=== PATIENT | male | born 1940 | race Hispanic/Latino ===

== ENCOUNTER 2017-02-01 00:02 | Inpatient (IN) | payer MEDICARE, OTHER ==
[2017-02-01 00:43] LABS: #Lymphocytes 0.6 thou/uL (1.20-3.40); #Monocytes 0.7 thou/uL (0.11-0.59); #Neutrophils 14.1 thou/uL (1.40-6.50); %Basophils 0.1 % (0.0-1.0); %Eosinophils 0.2 % (0.0-10.0); %Lymphocytes 3.8 % (21.0-51.0); %Monocytes 4.7 % (0.0-10.0); Hematocrit 45.1 % (42.0-52.0); Mean Platelet Volume 6.9 fL (7.4-10.4); Red Blood Cell (RBC) Count 4.79 mill/uL (4.70-6.10); White Blood Cell (WBC) Count 15.4 thou/uL (4.8-10.8)
[2017-02-01 01:15] LABS: Lactic Acid - Sepsis 3.1 mmol/L (0.5-2.2)
[2017-02-01 01:19] LABS: ALT (SGPT) 48 U/L (8-55); AST (SGOT) 47 U/L (5-34); Alkaline Phosphatase 55 U/L (40-150); Anion Gap 16 mmol/L (10-20); BUN (Urea Nitrogen) 16 mg/dL (8.4-25.7); Bilirubin, Total 0.7 mg/dL (0.2-1.2); Calc. Creatinine Clearance 0 mL/min (70-130); Calcium 9.8 mg/dL (7.8-10.44); Carbon Dioxide 23 mmol/L (23-31); Chloride 105 mmol/L (98-107); Estimated GFR-MDRD 44; Globulin 4.3 g/dL (2.4-3.5); Protein, Total 8.2 g/dL (5.8-8.1)
[2017-02-01 02:16] LABS: Bilirubin Negative (Negative); Blood, Urine Large (Negative); Glucose, Urine (Dipstick) Negative (Negative); Ketone, Urine Negative (Negative); Nitrite Negative (Negative); Protein, Urine (Dipstick) Negative (Neg-Trace); Urobilinogen 0.2 mg/dL (0.2-1.0)
[2017-02-01 02:18] LABS: Bacteria/HPF None Seen HPF (None Seen); Hyaline Casts/LPF 0-3 HYALINE CAST LPF (0-3 Hyaline); RBC/HPF GREATER THAN 50-TNTC HPF (0-3); Squamous Epithelial 0-3 HPF (0-3); WBC/HPF 0-3 HPF (0-3)
[2017-02-01 02:35] LABS: Renal Epithelial None Seen HPF (0-3); Transitional Epithelial NONE SEEN HPF (0-3)
[2017-02-01] MEDS ORDERED: cefTRIAXone\\ROCEPHIN 2 GM in Sodium Chloride 0.9% 100 ML IVPB SCH (03:15)
[2017-02-01] MEDS ORDERED: Loratadine 10 MG TAB PO PRN (07:25)
[2017-02-01] MEDS ORDERED: Polyethylene Glycol 3350 17 GM Packet PO PRN (07:25)
[2017-02-01] MEDS ORDERED: Ondansetron ODT 4 MG TAB PO PRN (07:25)
[2017-02-01] MEDS ORDERED: Chloraseptic Spray 180 ml Bottle PO PRN (07:25)
[2017-02-01] MEDS ORDERED: Ondansetron HCl/PF 4 MG/2 ML Vial IVP PRN (07:25)
[2017-02-01] MEDS ORDERED: Nitroglycerin 0.4 MG TAB (25 Tab Bottle) PO PRN (07:25)
[2017-02-01] MEDS ORDERED: Senokot 8.6 MG TAB PO PRN (07:25)
[2017-02-01] MEDS ORDERED: Cepastat Lozenges 1 LOZ PO PRN (07:25)
[2017-02-01] MEDS ORDERED: Eucerin (Mineral Oil/Petrolatum,White) 30 gm Jar TOP PRN (07:25)
[2017-02-01] MEDS ORDERED: hydrALAZINE 20 MG/ML VIAL SLOW IVP PRN (07:25)
[2017-02-01] MEDS ORDERED: Sodium Chloride 0.65% Nasal 44 ML BOT EA NARE PRN (07:59)
[2017-02-01] MEDS ORDERED: Temazepam 15 MG CAP PO PRN (07:59)
[2017-02-01] MEDS ORDERED: Mag-Al 1200 mg/1200 mg/30 ML UDCUP PO PRN (07:59)
[2017-02-01] MEDS ORDERED: Loperamide HCl 2 MG CAP PO PRN (07:59)
[2017-02-01] MEDS ORDERED: Milk Of Magnesia 30 ML UDCUP PO PRN (07:59)
[2017-02-01] MEDS ORDERED: Diabetic Tussin 200 MG/10 ML UDCUP PO PRN (07:59)
[2017-02-01] MEDS ORDERED: Benzonatate 100 MG CAP PO PRN (07:59)
[2017-02-01 08:00] LABS: PTT 29.6 SEC (22.9-36.1); Prothrombin Time 14.9 SEC (12.0-14.7)
[2017-02-01] MEDS: Docusate 100 MG CAP PO SCH ×2 (08:28→21:53)
[2017-02-01] MEDS: Sodium Chloride 0.9% 1,000 ML IV SCH ×3 (08:33→21:59)
[2017-02-01] MEDS: Folic Acid 1 MG TAB PO SCH (08:37)
[2017-02-01] MEDS: Famotidine 20 MG TAB PO SCH ×2 (08:37→21:54)
[2017-02-01] MEDS: Saccharomyces boulardii 250 MG CAP PO SCH (08:37)
[2017-02-01] MEDS: Multivit, Therapeutic 1 TAB PO SCH (08:38)
--- NOTE | 2017-02-01 09:17 | HP ---
PRIMARY CARE PHYSICIAN: Dr. Alton Spencer. REASON FOR ADMISSION: Sepsis. HISTORY OF PRESENT ILLNESS: A 76-year-old male with a history of hypertension, benign enlargement of prostate, who presented to emergency room with acute onset of fever, chills, generalized weakness. Patient reports that symptoms started last night. He became confused and he was not able to stand. He was so exhausted that he was feeling completely weak. He was having rigors with fever and that is why family member decided to bring him to the emergency room. This patient specifically denies any headache, sore throat or upper respiratory symptoms. He denies any cough. He denies any pleuritic chest pain. He denies any constipation, diarrhea, melena or gabe tochezia. He also denies any urinary tract infection symptoms, but when I was talking to him, he was intermittently coughing which was predominantly dry cough and he appeared very weak. Patient denies any recent travel. He denies any sick exposure. He denies any neck pain. He denies any rash. He denies any pain anywhere in his body. When he presented to emergency room, he was meeting sepsis criteria with temperature of 102.9 and pul se 112. His blood pressure was stable. He is saturating only 88% on room air, but later on he was s aturating normal. Patient had EKG which showed sinus tachycardia. His chest x-ray which was portable, which was unrema rkable, but his routine blood tests showed leukocytosis with left shift and lactic acidosis. The pat ie is being admitted for further evaluation and treatment. His influenza screen came back negative, but his urinalysis is showing hematuria, though patient vasquez es any UTI symptoms. EMERGENCY ROOM COURSE: The patient is given Rocephin 2 gram, vancomycin 1 gram, IV fluid 2 liter. REVIEW OF SYSTEMS: The following complete review of systems was negative, unless otherwise mentioned in the HPI or below: Constitutional: Weight loss or gain, ability to conduct usual activities. Skin: Rash, itching. Eyes: Double vision, pain. ENT/Mouth: Nose bleeding, neck stiffness, pain, tenderness. Cardiovascular: Palpitations, dyspnea on exertion, orthopnea. Respiratory: Shortness of breath, wheezing, cough, hemoptysis, fever or night sweats. Gastrointestinal: Poor appetite, abdominal pain, heartburn, nausea, vomiting, constipation, or diarr hea. Genitourinary: Urgency, frequency, dysuria, nocturia. Musculoskeletal: Pain, swelling. Neurologic/Psychiatric: Anxiety, depression. Allergy/Immunologic: Skin rash, bleeding tendency. Please see my HPI for pertinent positives and negatives. All other review of systems reviewed and ne gative except as mentioned in the HPI. ALLERGIES: No known drug allergies. CURRENT MEDICATIONS: Hydrochlorothiazide 25 mg p.o. daily, doxazosin 8 mg twice daily, naproxen 500 mg as needed daily, pravastatin 20 mg p.o. at bedtime, allopurinol 300 mg p.o. daily, aspirin 325 mg p.o. daily. PAST MEDICAL HISTORY: Hypertension, dyslipidemia, obesity, gout, osteoarthritis, benign enlargement of prostate, history of retinal hemorrhage in [address] Garcia, [facility]. PAST SURGICAL HISTORY: Herniorrhaphy, anal fistula repair in 1970s, colonoscopy last one was in 2004 , left eye laser surgery in 2005. HOSPITALIZATION: The patient did not have any recent hospitalization. FAMILY HISTORY: Father and he had cancer. Mother also by age of 82 and she had mu ltiple medical problems including coronary artery disease, hypertension, diabetes. Many siblings hav e history of heart disease and cancer. Daughter also diagnosed with diabetes and brother also diagno sed with coronary artery disease. SOCIAL HISTORY: Patient is . He lives with his at home. His daughter also lives with isabell coker. He denies any tobacco, alcohol or illicit drug abuse. He is retired. PAST PSYCHIATRIC HISTORY: Reviewed and negative. PHYSICAL EXAMINATION: VITAL SIGNS: On arrival, blood pressure 121/70, pulse 112, respiratory rate 20, temperature 102.9, s aturation 88% on room air, weight 77.1 kilograms. GENERAL: Patient is currently alert, awake, no obvious acute distress. HEAD: Normocephalic, atraumatic. EYES: Pupils round and reactive to light. Extraocular muscles intact. ENT: Oropharynx within normal limits. Moist mucous membranes. No oral lesions. No pharyngeal eryt gabe, no exudate. NECK: Supple, no JVD, no thyromegaly, no carotid bruit. LUNGS: Grossly clear to auscultation. I could not elicit any rhonchi or rales. CARDIAC: S1, S2 regular. No murmur, no gallop, no rub. ABDOMEN: Soft, bowel sounds present. No suprapubic tenderness. No peritoneal sign, no guarding, no rigidity, no rebound. BACK: On examination, no CVA tenderness. GENITALIA: Within normal limits, no testicular tenderness. No perineal tenderness. EXTREMITIES: No edema. Good peripheral pulsation. SKIN: No skin rash. HEMATOLOGICAL SYSTEM: No lymphadenopathy. SIGNIFICANT LABORATORY DATA: 1. CBC: WBC 15.4, hemoglobin 15.0, platelet 235 with left shift. INR 1.2. 2. BMP: Sodium 140, potassium 3.6, chloride 105, carbon dioxide 23, BUN 16, creatinine 1.53, glucos e 169, calcium 9.8. 3. LFT: AST 47, ALT 48, alkaline phosphatase 55, albumin 3.9. 4. Urinalysis consistent with hematuria. ASSESSMENT AND PLAN/IMPRESSION: 1. Sepsis with acute organ dysfunction. The patient has sepsis criteria with acute kidney injury an d mild hypoxia on admission. Patient will be on broad spectrum antibiotic therapy with Rocephin 2 gr am IV daily and Levaquin 500 mg IV daily. Source of infection is suspected for urinary tract infecti on versus early pneumonia. 2. Acute kidney injury. The patient will be given IV fluid with NS at 125 mL per hour today and we will repeat basic metabolic panel tomorrow. 3. Lactic acidosis due to sepsis and we will repeat lactic acid later on today. 4. Gross hematuria. We will do CT stone protocol to rule out any pathology or nephrolithiasis is mo st likely related with his benign enlargement of prostate and possible urinary tract infection as wel l. We will follow up on urine culture result. 5. Suspected pneumonia. We will repeat chest x-ray PA and lateral tomorrow. The patient is already on Rocephin and Levaquin. Patient has some symptoms of pneumonia with cough and fever, so we will r epeat chest x-ray for better evaluation of lung structures. 6. Generalized weakness. The patient will need PT, OT. We checked influenza screen and that came b ack negative. 7. History of hypertension. We will resume patient's home medication of doxazosin 8 mg daily. We w ill hold on hydrochlorothiazide tablet today because of kidney injury. 8. Dyslipidemia. We will continue pravastatin 20 mg p.o. at bedtime. 9. Gout. We will continue allopurinol 300 mg p.o. daily. 10. Deep venous thrombosis prophylaxis, only sequential compression device boots. We will avoid Nica enox because of gross hematuria, but we will monitor. If patient does not have any further hematuria , then we will consider starting Lovenox therapy. 11. Gastrointestinal prophylaxis. Pepcid 20 mg p.o. b.i.d. 12. Code status: The patient is FULL CODE. The patient's is surrogate decision maker. Disposition plan based on clinical course, likely more than 2 days. We are expecting patient's stay in hospital more than 2 midnights. Plan of care discussed with the patient in detail.
--- NOTE | 2017-02-01 10:02 | RAD ---
1 VIEW CHEST: Date: 02/01/17 HISTORY: Fall from standing. COMPARISON: None. FINDINGS: Atherosclerosis of aorta. Normal cardiac silhouette. Pulmonary vessels are slightly prominent, likely due to diminished lung volumes. No consolidation or masses. Bibasilar atelectasis is suspected. No p neumothorax. IMPRESSION: 1. Diminished lung volumes. 2. Atherosclerosis. POS: [facility]
[2017-02-01] MEDS: Allopurinol 300 MG TAB PO SCH (10:20)
[2017-02-01] MEDS: Doxazosin Mesylate 4 MG TAB PO SCH (10:20)
[2017-02-01 11:47] LABS: LegU Control Bar Appear? YES (CONTROL BAR); LegionellaU Control Bkground? CLEAR/WHITE (CLR/WHITE); Strp pneuU Control Background? CLEAR/WHITE (CLR/WHITE); Strp pneumo Control Bar Appear YES (CONTROL BAR)
--- NOTE | 2017-02-01 12:06 | CT ---
ABDOMEN CT WITHOUT CONTRAST PELVIC CT WITHOUT CONTRAST: Date: 02/01/17 HISTORY: Hematuria. COMPARISON: None. TECHNIQUE: Abdomen and pelvis CT are performed without contrast. Coronal reformatted images are submitted for in terpretation. FINDINGS: ABDOMEN CT: Lung bases are clear. Areas of scarring or atelectasis are noted. Heart size is normal. No significan t pericardial fluid. Descending thoracic aorta and abdominal aorta have an overall normal caliber. No periaortic fat stranding. Limited evaluation of the solid organs due to lack of IV contrast. No solid organ abnormality. No gastrohepatic, retrocrural, or periportal lymphadenopathy. No mesenteric mass, lymphadenopathy, free air, or free fluid. There is an approximately 1.9 cm gallstone near the neck of the gallbladder. No CT evidence of cholec ystitis. Nonspecific bilateral perinephric fat stranding. There is a 6.0 mm nonobstructing calculus in the lef t renal pelvis. Bilaterally, no hydronephrosis. Bilateral ureters have a normal caliber. No hydrouret er, periureteral fat stranding, or ureterolithiasis. Umbilical hernia containing mesenteric fat is present. Limited evaluation of the alimentary canal due to lack of oral contrast. No bowel obstruction. Normal caliber appendix. Ileocecal junction is normal. Scattered fecal material in a nondistended, nondilat ed colon. There is evidence of diverticulosis without evidence of diverticulitis. PELVIC CT: Urinary bladder is unremarkable. There is mild prostatic hypertrophy. No pelvic mass, lymphadenopathy, free air, or free fluid. There are no lytic or blastic lesions in the osseous structures. IMPRESSION: 1. Nonobstructing calculus in the upper pole of left kidney. Bilaterally, no obstructive uropathy. 2. Simple cyst in the right kidney. 3. CT evidence of cholelithiasis without evidence of cholecystitis. POS: [facility]
[2017-02-01 12:07] VITALS: BMI 34.7
[2017-02-01] MEDS: Acetaminophen 325 MG TAB PO PRN ×3 (12:16→21:54)
[2017-02-01] MEDS: Simvastatin 5 MG TAB PO SCH (21:54)
[2017-02-02 04:49] LABS: #Basophils 0.1 thou/uL (0.0-0.2); #Eosinphils 0.2 thou/uL (0.0-0.7); #Lymphocytes 1.6 thou/uL (1.20-3.40); #Monocytes 1.2 thou/uL (0.11-0.59); #Neutrophils 8.3 thou/uL (1.40-6.50); %Basophils 0.5 % (0.0-1.0); %Eosinophils 1.5 % (0.0-10.0); %Lymphocytes 14.4 % (21.0-51.0); %Monocytes 10.9 % (0.0-10.0); Mean Platelet Volume 7.1 fL (7.4-10.4); Red Blood Cell (RBC) Count 4.07 mill/uL (4.70-6.10); White Blood Cell (WBC) Count 11.4 thou/uL (4.8-10.8)
[2017-02-02] MEDS: cefTRIAXone\\ROCEPHIN 2 GM, Admixture Fee 1 EACH in Sodium Chloride 0.9% 100 ML IVPB SCH (04:52)
[2017-02-02] MEDS: Sodium Chloride 0.9% 1,000 ML IV SCH (04:57)
[2017-02-02 05:10] LABS: ALT (SGPT) 31 U/L (8-55); AST (SGOT) 34 U/L (5-34); Alkaline Phosphatase 41 U/L (40-150); Anion Gap 11 mmol/L (10-20); BUN (Urea Nitrogen) 16 mg/dL (8.4-25.7); Bilirubin, Total 0.4 mg/dL (0.2-1.2); Calc. Creatinine Clearance 68 mL/min (70-130); Calcium 8.5 mg/dL (7.8-10.44); Carbon Dioxide 23 mmol/L (23-31); Chloride 110 mmol/L (98-107); Estimated GFR-MDRD 58; Globulin 3.4 g/dL (2.4-3.5); Magnesium 1.9 mg/dL (1.6-2.6); Phosphorus 2.6 mg/dL (2.3-4.7); Protein, Total 6.4 g/dL (5.8-8.1)
[2017-02-02] MEDS: Folic Acid 1 MG TAB PO SCH (07:56)
[2017-02-02] MEDS: Doxazosin Mesylate 4 MG TAB PO SCH (07:56)
[2017-02-02] MEDS: Allopurinol 300 MG TAB PO SCH (07:56)
[2017-02-02] MEDS: Famotidine 20 MG TAB PO SCH ×2 (07:56→21:34)
[2017-02-02] MEDS: Multivit, Therapeutic 1 TAB PO SCH (07:56)
[2017-02-02] MEDS: Docusate 100 MG CAP PO SCH ×2 (07:56→21:34)
[2017-02-02] MEDS: Saccharomyces boulardii 250 MG CAP PO SCH (07:56)
--- NOTE | 2017-02-02 08:06 | PDOC.PN ---
- Subjective Encounter Start Date: 02/02/17 Encounter Start Time: 08:15 -: old records requested/rev pt has less cough, doing well, no fever, Patient seen and examined. No new complaints. No overnight events - Objective Resuscitation Status: Resuscitation Status FULL:Full Resuscitation MAR Reviewed: Yes Vital Signs & Weight: Vital Signs (12 hours) Temp Pulse Resp BP Pulse Ox 02/02/17 08:00 98.9 F 64 22 H 02/02/17 05:50 98.9 F 64 22 H 153/76 H 02/02/17 01:52 95 02/02/17 00:00 99.1 F 64 20 160/75 H 96 Weight Weight 209 lb I&O: 02/01/17 02/02/17 02/03/17 06:59 06:59 06:59 Intake Total 1979 Balance 1979 Result Diagrams: 02/02/17 03:59 02/02/17 03:59 Phys Exam - Physical Examination Constitutional: NAD HEENT: PERRLA, moist MMs, sclera anicteric Neck: no JVD, supple Respiratory: no wheezing, no rales, no rhonchi Cardiovascular: RRR, no significant murmur, no rub Gastrointestinal: soft, non-tender, no distention, positive bowel sounds Musculoskeletal: no edema, pulses present Neurological: non-focal, normal sensation Lymphatic: no nodes Psychiatric: normal affect, A&O x 3 Skin: no rash, normal turgor Dx/Plan (1) Acute kidney failure Status: Acute Comment: Improving (2) Bacteremia due to Streptococcus pneumoniae Code(s): R78.81 - BACTEREMIA Status: Acute (3) Hematuria Code(s): R31.9 - HEMATURIA, UNSPECIFIED Status: Acute Qualifiers: Hematuria type: other microscopic Qualified Code(s): R31.29 - Other microscopic hematuria; R31.2 - Other microscopic hematuria (4) Lactic acidosis Code(s): E87.2 - ACIDOSIS Status: Resolved (5) Pneumonia due to Streptococcus pneumoniae Code(s): J13 - PNEUMONIA DUE TO STREPTOCOCCUS PNEUMONIAE Status: Acute Qualifiers: Laterality: unspecified laterality Lung location: unspecified part of lung Qualified Code(s): J13 - Pneumonia due to Streptococcus pneumoniae (6) Sepsis with acute organ dysfunction Code(s): A41.9 - SEPSIS, UNSPECIFIED ORGANISM; R65.20 - SEVERE SEPSIS WITHOUT SEPTIC SHOCK Status: Acute (7) Weakness generalized Code(s): R53.1 - WEAKNESS Status: Acute (8) BPH (benign prostatic hyperplasia) Code(s): N40.0 - BENIGN PROSTATIC HYPERPLASIA WITHOUT LOWER URINRY TRACT SYMP Status: Chronic (9) Cholelithiases Code(s): K80.20 - CALCULUS OF GALLBLADDER W/O CHOLECYSTITIS W/O OBSTRUCTION Status: Chronic Qualifiers: Cholelithiasis location: gallbladder Cholecystitis presence: without cholecystitis Biliary obstruction: without biliary obstruction Qualified Code(s): K80.20 - Calculus of gallbladder without cholecystitis without obstruction (10) Gout Code(s): M10.9 - GOUT, UNSPECIFIED Status: Chronic (11) Hypertension Code(s): I10 - ESSENTIAL (PRIMARY) HYPERTENSION Status: Chronic (12) Obesity (BMI 30-39.9) Code(s): E66.9 - OBESITY, UNSPECIFIED Status: Chronic (13) Renal calculus, left Code(s): N20.0 - CALCULUS OF KIDNEY Status: Chronic - Plan cont current plan of care, plan discussed w/ family, continue antibiotics, PT/OT * continue rocephin and levaquin * medication reviewed as below * symptomatic treatment * will repeat labs tomorrow and repeat blood culture * DC IVF * discussed with family. Review of Systems - Review of Systems Constitutional: Weakness. negative: Fever, Chills, Sweats, Malaise, Other ENT: negative: Ear Pain, Ear Discharge, Nose Pain, Nose Discharge, Nose Congestion, Mouth Pain, Mouth Swelling, Throat Pain, Throat Swelling, Other Respiratory: Cough. negative: Dry, Shortness of Breath, Hemoptysis, SOB with Excertion, Pleuritic Pain, Sputum, Wheezing Cardiovascular: negative: Chest Pain, Palpitations, Orthopnea, Paroxysmal Noc. Dyspnea, Edema, Light Headedness, Other Gastrointestinal: negative: Nausea, Vomiting, Abdominal Pain, Diarrhea, Constipation, Melena, Hematochezia, Other Genitourinary: negative: Dysuria, Frequency, Incontinence, Hematuria, Retention , Other Musculoskeletal: negative: Neck Pain, Shoulder Pain, Arm Pain, Back Pain, Hand Pain, Leg Pain, Foot Pain, Other Skin: negative: Rash, Lesions, Asif, Bruising, Other - Medications/Allergies Allergies/Adverse Reactions: Allergies Allergy/AdvReac Type Severity Reaction Status Date / Time No Known Drug Allergies Allergy Verified 02/01/17 10:58 Medications: Current Medications Acetaminophen (Tylenol) 650 mg PO Q4H PRN PRN Reason: Headache/Fever or Pain Last Admin: 02/01/17 21:54 Dose: 650 mg Al Hydroxide/Mg Hydroxide (Maalox) 15 ml PO Q4H PRN PRN Reason: Heartburn or Indigestion Albuterol/Ipratropium (Duoneb) 3 ml NEB [id number] PRN PRN Reason: SOB &/or Wheezing Allopurinol (Zyloprim) 300 mg PO DAILY [facility] Last Admin: 02/02/17 07:56 Dose: 300 mg Benzonatate (Tessalon) 100 mg PO Q4H PRN PRN Reason: Cough Docusate Sodium (Colace) 100 mg PO BID [facility] Last Admin: 02/02/17 07:56 Dose: 100 mg Doxazosin Mesylate (Cardura) 8 mg PO DAILY [facility] Last Admin: 02/02/17 07:56 Dose: 8 mg Famotidine (Pepcid) 20 mg PO BID [facility] Last Admin: 02/02/17 07:56 Dose: 20 mg Folic Acid (Folvite) 1 mg PO DAILY [facility] Last Admin: 02/02/17 07:56 Dose: 1 mg Guaifenesin (Robitussin Sf) 200 mg PO Q4H PRN PRN Reason: Cough Hydralazine HCl (Apresoline) 5 mg SLOW IVP Q4H PRN PRN Reason: SBP Greater Than 180 Sodium Chloride (Normal Saline 0.9%) 1,000 mls @ 125 mls/hr IV .Q8H [facility] Last Admin: 02/02/17 04:57 Dose: 1,000 mls Ceftriaxone Sodium 2 gm/Miscellaneous Medication 1 each/ Sodium Chloride 100 mls @ 200 mls/hr IVPB 0400 [facility] Last Admin: 02/02/17 04:52 Dose: 100 mls Levofloxacin 500 mg/ Device 100 mls @ 100 mls/hr IVPB 0800 [facility] Last Admin: 02/02/17 07:55 Dose: 100 mls Loperamide HCl (Imodium) 2 mg PO PRN PRN PRN Reason: Diarrhea/Loose Stools Loratadine (Claritin) 10 mg PO DAILYPRN PRN PRN Reason: Sinus Symptoms Magnesium Hydroxide (Milk Of Magnesium) 30 ml PO DAILYPRN PRN PRN Reason: Constipation Mineral Oil/White Petrolatum (Eucerin Cream) 0 gm TOP BIDPRN PRN PRN Reason: Dry Skin Multivitamins (Theragran) 1 tab PO DAILY [facility] Last Admin: 02/02/17 07:56 Dose: 1 tab Nitroglycerin (Nitrostat) 0.4 mg PO Q5MIN PRN PRN Reason: Chest Pain Ondansetron HCl (Zofran Odt) 4 mg PO Q6H PRN PRN Reason: Nausea/Vomiting Ondansetron HCl (Zofran) 4 mg IVP Q6H PRN PRN Reason: Nausea/Vomiting Phenol (Chloraseptic [place] 180 Ml Bot) 0 ml PO BIDPRN PRN PRN Reason: Sore Throat Polyethylene Glycol (Miralax) 17 gm PO DAILY PRN PRN Reason: Constipation Saccharomyces Boulardii (Florastor) 250 mg PO DAILY [facility] Last Admin: 02/02/17 07:56 Dose: 250 mg Senna (Senokot) 2 tab PO HSPRN PRN PRN Reason: Constipation Simvastatin (Zocor) 10 mg PO HS [facility] Last Admin: 02/01/17 21:54 Dose: 10 mg Sodium Chloride (Flush - Normal Saline) 10 ml IVF PRN PRN PRN Reason: Saline Flush Sodium Chloride ([place] Nasal [place] 0.65%) 0 ml EA NARE QIDPRN PRN PRN Reason: Nasal Congestion Temazepam (Restoril) 15 mg PO HSPRN PRN PRN Reason: Insomnia Throat Lozenges (Cepastat Lozenges) 1 bobby PO Q2H PRN PRN Reason: Sore Throat
--- NOTE | 2017-02-02 10:12 | RAD ---
TWO VIEW CHEST: COMPARISON: Portable film 02/01/17. FINDINGS: Some linear atelectatic change in the left lung base. CP angles are obscured and I cannot exclude sm all effusions. Mild stranding or atelectasis in the right mid lung. No evidence of a new infiltrate . No evidence of vascular congestion or edema. IMPRESSION: Findings above appear stable from 02/01/17. POS: [facility]
[2017-02-02] MEDS: Simvastatin 5 MG TAB PO SCH (21:34)
[2017-02-03] MEDS: cefTRIAXone\\ROCEPHIN 2 GM, Admixture Fee 1 EACH in Sodium Chloride 0.9% 100 ML IVPB SCH (04:04)
[2017-02-03 05:39] LABS: #Eosinphils 0.5 thou/uL (0.0-0.7); #Lymphocytes 2.6 thou/uL (1.20-3.40); #Monocytes 1.1 thou/uL (0.11-0.59); #Neutrophils 6.5 thou/uL (1.40-6.50); %Basophils 0.5 % (0.0-1.0); %Eosinophils 4.3 % (0.0-10.0); %Lymphocytes 24.6 % (21.0-51.0); %Monocytes 10.1 % (0.0-10.0); Hematocrit 40.7 % (42.0-52.0); Mean Platelet Volume 7.4 fL (7.4-10.4); Red Blood Cell (RBC) Count 4.25 mill/uL (4.70-6.10); White Blood Cell (WBC) Count 10.7 thou/uL (4.8-10.8)
[2017-02-03 06:14] LABS: ALT (SGPT) 26 U/L (8-55); AST (SGOT) 27 U/L (5-34); Alkaline Phosphatase 46 U/L (40-150); Anion Gap 13 mmol/L (10-20); BUN (Urea Nitrogen) 12 mg/dL (8.4-25.7); Bilirubin, Total 0.4 mg/dL (0.2-1.2); Calc. Creatinine Clearance 61 mL/min (70-130); Calcium 8.9 mg/dL (7.8-10.44); Carbon Dioxide 23 mmol/L (23-31); Chloride 109 mmol/L (98-107); Estimated GFR-MDRD 51; Globulin 3.9 g/dL (2.4-3.5); Protein, Total 7.1 g/dL (5.8-8.1)
[2017-02-03] MEDS: Folic Acid 1 MG TAB PO SCH (07:57)
[2017-02-03] MEDS: Docusate 100 MG CAP PO SCH ×2 (07:57→20:05)
[2017-02-03] MEDS: Saccharomyces boulardii 250 MG CAP PO SCH (07:57)
[2017-02-03] MEDS: Multivit, Therapeutic 1 TAB PO SCH (07:57)
[2017-02-03] MEDS: Famotidine 20 MG TAB PO SCH ×2 (07:57→20:05)
[2017-02-03] MEDS: Allopurinol 300 MG TAB PO SCH (07:58)
[2017-02-03] MEDS: Doxazosin Mesylate 4 MG TAB PO SCH (08:00)
--- NOTE | 2017-02-03 10:39 | PDOC.PN ---
- Subjective Encounter Start Date: 02/03/17 Encounter Start Time: 08:30 Patient seen and examined. No new complaints. No overnight events - Objective Resuscitation Status: Resuscitation Status FULL:Full Resuscitation MAR Reviewed: Yes Vital Signs & Weight: Vital Signs (12 hours) Temp Pulse Resp BP Pulse Ox 02/03/17 08:09 98.3 F 66 16 175/87 H 93 L 02/03/17 08:00 98.3 F 66 16 02/03/17 00:00 99.3 F 72 20 167/81 H 96 Weight Weight 209 lb I&O: 02/02/17 02/03/17 02/04/17 06:59 06:59 06:59 Intake Total 1979 100 Balance 1979 100 Result Diagrams: 02/03/17 04:06 02/03/17 04:06 Phys Exam - Physical Examination Constitutional: NAD HEENT: PERRLA, moist MMs, sclera anicteric Neck: no JVD, supple Respiratory: no wheezing, no rales, no rhonchi Cardiovascular: RRR, no significant murmur, no rub Gastrointestinal: soft, non-tender, no distention, positive bowel sounds Musculoskeletal: no edema, pulses present Neurological: non-focal, normal sensation, moves all 4 limbs Lymphatic: no nodes Psychiatric: normal affect, A&O x 3 Skin: no rash, normal turgor Dx/Plan (1) Acute kidney failure Status: Acute Comment: Improving (2) Bacteremia due to Streptococcus pneumoniae Code(s): R78.81 - BACTEREMIA Status: Acute (3) Hematuria Code(s): R31.9 - HEMATURIA, UNSPECIFIED Status: Acute Qualifiers: Hematuria type: other microscopic Qualified Code(s): R31.29 - Other microscopic hematuria; R31.2 - Other microscopic hematuria (4) Lactic acidosis Code(s): E87.2 - ACIDOSIS Status: Resolved (5) Pneumonia due to Streptococcus pneumoniae Code(s): J13 - PNEUMONIA DUE TO STREPTOCOCCUS PNEUMONIAE Status: Acute Qualifiers: Laterality: unspecified laterality Lung location: unspecified part of lung Qualified Code(s): J13 - Pneumonia due to Streptococcus pneumoniae (6) Sepsis with acute organ dysfunction Code(s): A41.9 - SEPSIS, UNSPECIFIED ORGANISM; R65.20 - SEVERE SEPSIS WITHOUT SEPTIC SHOCK Status: Acute (7) Weakness generalized Code(s): R53.1 - WEAKNESS Status: Acute (8) BPH (benign prostatic hyperplasia) Code(s): N40.0 - BENIGN PROSTATIC HYPERPLASIA WITHOUT LOWER URINRY TRACT SYMP Status: Chronic (9) Cholelithiases Code(s): K80.20 - CALCULUS OF GALLBLADDER W/O CHOLECYSTITIS W/O OBSTRUCTION Status: Chronic Qualifiers: Cholelithiasis location: gallbladder Cholecystitis presence: without cholecystitis Biliary obstruction: without biliary obstruction Qualified Code(s): K80.20 - Calculus of gallbladder without cholecystitis without obstruction (10) Gout Code(s): M10.9 - GOUT, UNSPECIFIED Status: Chronic (11) Hypertension Code(s): I10 - ESSENTIAL (PRIMARY) HYPERTENSION Status: Chronic (12) Obesity (BMI 30-39.9) Code(s): E66.9 - OBESITY, UNSPECIFIED Status: Chronic (13) Renal calculus, left Code(s): N20.0 - CALCULUS OF KIDNEY Status: Chronic - Plan cont current plan of care, plan discussed w/ family, continue antibiotics, PT/OT * continue one more days IV rocephin and levaquin * will consider discharge tomorrow * medication reviewed as below * symptomatic treatment. Review of Systems - Review of Systems ENT: negative: Ear Pain, Ear Discharge, Nose Pain, Nose Discharge, Nose Congestion, Mouth Pain, Mouth Swelling, Throat Pain, Throat Swelling, Other Respiratory: negative: Cough, Dry, Shortness of Breath, Hemoptysis, SOB with Excertion, Pleuritic Pain, Sputum, Wheezing Cardiovascular: negative: Chest Pain, Palpitations, Orthopnea, Paroxysmal Noc. Dyspnea, Edema, Light Headedness, Other Gastrointestinal: negative: Nausea, Vomiting, Abdominal Pain, Diarrhea, Constipation, Melena, Hematochezia, Other Genitourinary: negative: Dysuria, Frequency, Incontinence, Hematuria, Retention , Other Musculoskeletal: negative: Neck Pain, Shoulder Pain, Arm Pain, Back Pain, Hand Pain, Leg Pain, Foot Pain, Other Skin: negative: Rash, Lesions, Asif, Bruising, Other - Medications/Allergies Allergies/Adverse Reactions: Allergies Allergy/AdvReac Type Severity Reaction Status Date / Time No Known Drug Allergies Allergy Verified 02/01/17 10:58 Medications: Current Medications Acetaminophen (Tylenol) 650 mg PO Q4H PRN PRN Reason: Headache/Fever or Pain Last Admin: 02/01/17 21:54 Dose: 650 mg Al Hydroxide/Mg Hydroxide (Maalox) 15 ml PO Q4H PRN PRN Reason: Heartburn or Indigestion Albuterol/Ipratropium (Duoneb) 3 ml NEB [id number] PRN PRN Reason: SOB &/or Wheezing Allopurinol (Zyloprim) 300 mg PO DAILY [facility] Last Admin: 02/03/17 07:58 Dose: 300 mg Benzonatate (Tessalon) 100 mg PO Q4H PRN PRN Reason: Cough Docusate Sodium (Colace) 100 mg PO BID [facility] Last Admin: 02/03/17 07:57 Dose: 100 mg Doxazosin Mesylate (Cardura) 8 mg PO DAILY [facility] Last Admin: 02/03/17 08:00 Dose: 8 mg Famotidine (Pepcid) 20 mg PO BID [facility] Last Admin: 02/03/17 07:57 Dose: 20 mg Folic Acid (Folvite) 1 mg PO DAILY [facility] Last Admin: 02/03/17 07:57 Dose: 1 mg Guaifenesin (Robitussin Sf) 200 mg PO Q4H PRN PRN Reason: Cough Hydralazine HCl (Apresoline) 5 mg SLOW IVP Q4H PRN PRN Reason: SBP Greater Than 180 Ceftriaxone Sodium 2 gm/Miscellaneous Medication 1 each/ Sodium Chloride 100 mls @ 200 mls/hr IVPB 0400 [facility] Last Admin: 02/03/17 04:04 Dose: 100 mls Levofloxacin 500 mg/ Device 100 mls @ 100 mls/hr IVPB 0800 [facility] Last Admin: 02/03/17 07:58 Dose: 100 mls Loperamide HCl (Imodium) 2 mg PO PRN PRN PRN Reason: Diarrhea/Loose Stools Loratadine (Claritin) 10 mg PO DAILYPRN PRN PRN Reason: Sinus Symptoms Magnesium Hydroxide (Milk Of Magnesium) 30 ml PO DAILYPRN PRN PRN Reason: Constipation Mineral Oil/White Petrolatum (Eucerin Cream) 0 gm TOP BIDPRN PRN PRN Reason: Dry Skin Multivitamins (Theragran) 1 tab PO DAILY [facility] Last Admin: 02/03/17 07:57 Dose: 1 tab Nitroglycerin (Nitrostat) 0.4 mg PO Q5MIN PRN PRN Reason: Chest Pain Ondansetron HCl (Zofran Odt) 4 mg PO Q6H PRN PRN Reason: Nausea/Vomiting Ondansetron HCl (Zofran) 4 mg IVP Q6H PRN PRN Reason: Nausea/Vomiting Phenol (Chloraseptic [place] 180 Ml Bot) 0 ml PO BIDPRN PRN PRN Reason: Sore Throat Polyethylene Glycol (Miralax) 17 gm PO DAILY PRN PRN Reason: Constipation Saccharomyces Boulardii (Florastor) 250 mg PO DAILY [facility] Last Admin: 02/03/17 07:57 Dose: 250 mg Senna (Senokot) 2 tab PO HSPRN PRN PRN Reason: Constipation Simvastatin (Zocor) 10 mg PO HS [facility] Last Admin: 02/02/17 21:34 Dose: 10 mg Sodium Chloride (Flush - Normal Saline) 10 ml IVF PRN PRN PRN Reason: Saline Flush Sodium Chloride ([place] Nasal [place] 0.65%) 0 ml EA NARE QIDPRN PRN PRN Reason: Nasal Congestion Temazepam (Restoril) 15 mg PO HSPRN PRN PRN Reason: Insomnia Throat Lozenges (Cepastat Lozenges) 1 bobby PO Q2H PRN PRN Reason: Sore Throat
[2017-02-03] MEDS: Naproxen 500 MG TAB PO PRN (15:50)
[2017-02-03] MEDS: Simvastatin 5 MG TAB PO SCH (20:05)
[2017-02-04] MEDS: cefTRIAXone\\ROCEPHIN 2 GM, Admixture Fee 1 EACH in Sodium Chloride 0.9% 100 ML IVPB SCH (04:29)
[2017-02-04] MEDS: Naproxen 500 MG TAB PO PRN (04:29)
[2017-02-04] MEDS: Allopurinol 300 MG TAB PO SCH (08:19)
[2017-02-04] MEDS: Famotidine 20 MG TAB PO SCH (08:19)
[2017-02-04] MEDS: Folic Acid 1 MG TAB PO SCH (08:19)
[2017-02-04] MEDS: Multivit, Therapeutic 1 TAB PO SCH (08:19)
[2017-02-04] MEDS: Saccharomyces boulardii 250 MG CAP PO SCH (08:19)
[2017-02-04] MEDS: Doxazosin Mesylate 4 MG TAB PO SCH (08:20)
[2017-02-04] MEDS: Docusate 100 MG CAP PO SCH (08:20)
--- NOTE | 2017-02-04 12:15 | DIS ---
PRIMARY CARE PHYSICIAN: Dr. Alton Spencer DATE OF ADMISSION: 02/01/2017 DATE OF DISCHARGE: 02/04/2017 DISCHARGE DISPOSITION: Home. PRIMARY DISCHARGE DIAGNOSES: 1. Streptococcal pneumonia. 2. Bacteremia due to Streptococcus pneumoniae. 3. Sepsis with acute organ dysfunction. 4. Acute physical weakness, improved. 5. Lactic acidosis, resolved. SECONDARY DISCHARGE DIAGNOSES: 1. Left renal calculus, nonobstructive. 2. Obesity with BMI 34. 3. Hypertension. 4. Gout. 5. Cholelithiasis. 6. Benign enlargement of prostate. PRIMARY PROCEDURE/OPERATION: None. RADIOLOGICAL INVESTIGATION: Chest x-ray on admission showed no acute process. Abdomen and pelvis CT scan showed nonobstructive left renal calculi, cholelithiasis. SIGNIFICANT LABS: WBC 10.7, hemoglobin 13.3, platelet 210. INR 1.2, sodium 141 , potassium 3.8, BUN 12, creatinine 1.22, calcium 8.9. LFTs normal. Urinalysis ; microscopic hematuria, urinary legionella and streptococcal pneumoniae antigen test negative. Blood culture positive for Streptococcus pneumoniae and subsequently repeat culture is negative. Influenza and virus panel negative. Urine culture negative. DISCHARGE MEDICATIONS: Cardura 8 mg p.o. b.i.d., hydrochlorothiazide 25 mg p.o. daily, Levaquin 500 mg p.o. daily for 11 days, Florastor 250 mg p.o. daily for 11 days, pravastatin 20 mg p.o. at bedtime, naproxen 500 mg p.o. b.i.d. p.r.n. CONTRAINDICATIONS: None. CODE STATUS: Full code. INPATIENT CONSULTANTS: None. ALLERGIES: No known drug allergies. DISCHARGE PLAN: Post hospital, the patient will follow up with primary care physician in 1 week. HOSPITAL COURSE: A 76-year-old male who was admitted by me. Please see my HPI for further details. The patient was admitted on 02/01/2017. The patient was having rigors and chills, and he was generalized weak. He was also having cough , dry in nature. Initially surprisingly his chest x-ray was normal. He had microscopic hematuria and that is why we did a CT stone protocol which was also unremarkable other than mild nonobstructive left-sided nephrolithiasis and cholelithiasis. The patient was having some lower respiratory symptoms and his blood culture came back positive for Streptococcus pneumoniae and that is why we suspected Streptococcal pneumonia. He was initially given Rocephin and Levaquin. On discharge, we changed to only Levofloxacin for another 11 days. His repeat blood culture is negative. While in hospital his influenza screen and viral panel was negative. With IV antibiotic therapy. The patient's condition significantly improved. He was ambulatory and he was on room air, he was much better. The patient is seen and examined at bedside today. Plan of care discussed with the patient and family member at bedside. REVIEW OF SYSTEMS: Reviewed and negative. PHYSICAL EXAMINATION: VITAL SIGNS: Currently, temperature 98.5, pulse 72, respiratory rate 16, saturation 97%, blood pressure 170/65. Weight 209 pounds. GENERAL: The patient is currently alert, oriented, no acute distress. HEENT: Head normocephalic, atraumatic. LUNGS: Clear. CARDIAC: S1, S2 regular without any murmur. ABDOMEN: Soft and benign without any tenderness. EXTREMITIES: No edema. NEUROLOGIC: Nonfocal examination. All new medication prescription given to his pharmacy. Total time spent on discharge day more than 30 minutes MTDD
[2017-02-04 12:28] VITALS: BP 169/84; TEMP 98.3
== END 2017-02-04 14:00 | disposition home or self-care (01) | DRG 871 ==
LOC: ERS 00:02 → T4-A 06:58
PROVIDERS: ADMIT Internal Medicine; ATTEND Internal Medicine
DX: A40.3 Sepsis due to Streptococcus pneumoniae (principal); J13 Pneumonia due to Streptococcus pneumoniae; R65.20 Severe sepsis without septic shock; N17.9 Acute kidney failure, unspecified; E87.2 Acidosis; N20.0 Calculus of kidney; E66.9 Obesity, unspecified; Z68.34 Body mass index [BMI] 34.0-34.9, adult; I10 Essential (primary) hypertension; M1A.9XX0 Chronic gout, unspecified, without tophus (tophi); E78.5 Hyperlipidemia, unspecified; N40.0 Benign prostatic hyperplasia without lower urinary tract symptoms; K80.20 Calculus of gallbladder without cholecystitis without obstruction; R31.29 Other microscopic hematuria
CPT/HCPCS: 36415; 51701; 71010; 71020; 74176; 80053; 81003; 81015; 83605; 83735; 84100; 85025; 85610; 85730; 87040; 87077; 87086; 87149; 87186; 87633; 87798; 87899; 93005; 94760; 96361; 96365; 96367; G8978-GP-CI; G8979-GP-CI; G8980-GP-CI; G8987-GO-CI; G8988-GO-CI; G8989-GO-CI; J0696; J1956; J3370; J7050

== ENCOUNTER 2018-11-11 12:44 | Outpatient (CLI) | payer MEDICARE ==
--- NOTE | 2018-11-11 13:04 | RAD ---
EXAM: Two views chest PROVIDED CLINICAL HISTORY: Respiratory rales. COMPARISON: 02/02/2017 FINDINGS: Cardiac silhouette and pulmonary vasculature are within normal limits. Bronchovascular markings are mildly accentuated by shallow depth inspiration. Linear densities are again seen at each lung base likely related to mild scarring. Slight blunting of each lateral costophrenic angle is also again pre sent probably due to associated pleural and parenchymal scarring. No new area of consolidation is seen. Mild degenerative changes are seen in the spine. Calcification again overlies the right upper q uadrant and shown to represent a large gallbladder calculus on CT abdomen on 02/01/2017. Vascular calcifications are seen in the thoracic aorta. IMPRESSION: 1. No acute cardiopulmonary process. 2. Mild chronic bibasilar lung changes. 3. Cholelithiasis.
== END 2018-11-11 12:45 | disposition home or self-care (01) ==
LOC: BICRAD 12:44
PROVIDERS: ATTEND Family Medicine
DX: R09.89 Other specified symptoms and signs involving the circulatory and respiratory systems (principal); K80.20 Calculus of gallbladder without cholecystitis without obstruction
CPT/HCPCS: 71046; 80061; G0103; 36415; 80053; 84443; 85025

== ENCOUNTER 2020-01-23 14:00 | Inpatient (IN) | payer MEDICARE ==
[2020-01-23] MEDS ORDERED: Doxazosin Mesylate 4 MG TAB PO SCH (22:00)
[2020-01-23 22:59] VITALS: BMI 29.6
[2020-01-24] MEDS ORDERED: Calcium Carbonate 500 MG ChewTAB PO PRN (02:30)
[2020-01-24] MEDS ORDERED: Acetaminophen 325 MG TAB PO PRN (02:30)
[2020-01-24] MEDS ORDERED: Acetaminophen 650 MG Suppository PR PRN (02:30)
[2020-01-24] MEDS ORDERED: Ondansetron PF 4 MG/2 ML Vial IVP PRN (02:30)
[2020-01-24] MEDS ORDERED: Ondansetron ODT 4 MG TAB PO PRN (02:30)
[2020-01-24] MEDS ORDERED: HYDROcodone/Acetaminophen 5/325 mg Tablet PO PRN (02:30)
--- NOTE | 2020-01-24 02:39 | PDOC.HHP ---
Hospitalist HPI - History of Present Illness covid 19 hypoxia History of Present Illness: Case of an 79y/o male with a pmhx of htn, hld and bph who comes to hospital due to covid 19 with hypoxia. apparently patient was on his usual state of health until about a week ago when he started with cough general malaise and general weakness, since then patient has had multiple falls w/o LOC. he states he just feels very weak and feels unable to handle the weigh of his body. today he was taken to and ED after a fall to be evaluated. initially patient seemed fine with adequate sates but on route to get his head ct which was negative, his saturation dropped into the mid 80s for which he was sent here for further evaluation and management. patient denies any fever chills nausea vomiting loss of state or smell, also denies any chesp pain palpitation diaphoresis or abd pain, does complained of some diarrhea that started yesterday. patient states that when his symptoms started his tested positive for covid 19 Hospitalist ROS - Review of Systems All other systems reviewed; all pertinent +/- noted in HPI/Subj Hospitalist History - Past Surgical History Past Surgical History: reports: no pertinent history - Family History Family History: reports: cancer, diabetes mellitus - Social History Smoking Status: Former smoker Alcohol: reports: None Drugs: reports: none - Exam General Appearance: NAD, awake alert Eye: PERRL, anicteric sclera ENT: normocephalic atraumatic, no oropharyngeal lesions, moist mucosa Neck: supple, symmetric, no JVD, no thyromegaly Heart: RRR, no murmur, no gallops, no rubs Respiratory: CTAB, no wheezes, no rales, no ronchi Gastrointestinal: soft, non-tender, non-distended, normal bowel sounds Extremities: no cyanosis, no clubbing, no edema Skin: normal turgor, no lesions, no rashes Neurological: cranial nerve grossly intact, normal sensation to touch, no weakness Musculoskeletal: normal tone, normal strength, no muscle wasting Psychiatric: normal affect, normal behavior, A&O x 3 Hospitalist H&P A/P - Problem (1) COVID-19 Code(s): U07.1 - COVID-19 Status: Acute (2) HLD (hyperlipidemia) Code(s): E78.5 - HYPERLIPIDEMIA, UNSPECIFIED Status: Acute (3) Weakness generalized Code(s): R53.1 - WEAKNESS Status: Acute (4) BPH (benign prostatic hyperplasia) Code(s): N40.0 - BENIGN PROSTATIC HYPERPLASIA WITHOUT LOWER URINRY TRACT SYMP Status: Chronic (5) Hypertension Code(s): I10 - ESSENTIAL (PRIMARY) HYPERTENSION Status: Chronic - Plan Plan: 79y/o male with the stated pmhx who presents with covid 19 en hypoxia covid 19 / hypoxia - positive contact - hypoxia en exertion - will start decadron 6mg ivd - f/u inflammation markers - 02 supplementation as needed - isolation protocol - dvt prophylaxis - f/u cxr htn / hld / bph - continue home meds
[2020-01-24 07:04] LABS: Hemoglobin 13.8 g/dL (14.0-18.0); Mean Corpuscular HGB CONC 33.2 g/dL (32.0-36.0); Mean Corpuscular Hemoglobin 31.4 pg (27.0-31.0); Mean Corpuscular Volume 94.6 fL (78.0-98.0); Mean Platelet Volume 8.2 fL (7.4-10.4); Platelet Count 191 thou/uL (130-400); RBC Distribution Width 12.3 % (11.5-14.5); Red Blood Cell (RBC) Count 4.38 mill/uL (4.70-6.10); White Blood Cell (WBC) Count 7.7 thou/uL (4.8-10.8)
[2020-01-24 07:10] LABS: ALT (SGPT) 36 U/L (8-55); AST (SGOT) 41 U/L (5-34); Albumin 3.1 g/dL (3.4-4.8); Alkaline Phosphatase 41 U/L (40-110); Anion Gap 13 mmol/L (10-20); BUN (Urea Nitrogen) 23 mg/dL (8.4-25.7); Bilirubin, Total 0.6 mg/dL (0.2-1.2); Calc. Creatinine Clearance 69 mL/min (70-130); Carbon Dioxide 26 mmol/L (23-31); Chloride 111 mmol/L (98-107); Estimated GFR-MDRD 66; Globulin 3.9 g/dL (2.4-3.5); Glucose 140 mg/dL (83-110); Potassium 3.6 mmol/L (3.5-5.1); Sodium 146 mmol/L (136-145)
[2020-01-24 07:59] LABS: Band 10 % (5-11); Lymphocytes 10 % (21-51); MDiff Complete? YES; Monocytes 1 % (0-10); Neutrophil 78 % (42-75); Platelet Morphology Comment Appears Adequate; RBC Morphology Normal; Reactive Lymphocytes 1 % (0-10)
[2020-01-24] MEDS: Doxazosin Mesylate 4 MG TAB PO SCH ×2 (08:08→20:18)
[2020-01-24] MEDS: Guaifenesin DM 100-10/5 ML UDCUP PO PRN (08:08)
[2020-01-24] MEDS: Dexamethasone Sod Phosphate 6 MG in Sodium Chloride 0.9% 50 ML IVPB SCH (08:26)
--- NOTE | 2020-01-24 08:49 | RAD ---
PORTABLE CHEST: HISTORY: COVID pneumonia. COMPARISON: 11/11/2018. FINDINGS: There are hazy infiltrative changes in the left peripheral lung which are suspicious for ground-glass -type COVID infiltrates. There is also evidence of right lower lung infiltrate and/or atelectasis. IMPRESSION: Evidence of hazy bilateral infiltrates which would be consistent with COVID pneumonia. POS: AGW
[2020-01-24] MEDS: Enoxaparin Sodium 40 MG/0.4 ML SYRINGE SC SCH (09:34)
--- NOTE | 2020-01-24 14:29 | PRG ---
DATE OF SERVICE: 01/24/2020 SUBJECTIVE: The patient is not in acute distress. He has some mild shortness of breath. No complaints of fever or chills. OBJECTIVE: VITAL SIGNS: He has a temperature of 97.9 degrees Fahrenheit, heart rate of 66 per minute, respiratory rate of 18 per minute, and saturation of 97% on room air. He has an airway, which is clear. HEENT: Atraumatic and normocephalic. NECK: Supple. No bruit. No lymphadenopathy. CARDIOVASCULAR: S1 and S2. Normal sinus rhythm. CHEST: Bilateral air entry present. No rhonchi. No wheeze. ABDOMEN: Soft and nontender. Bowel sounds are present. No organomegaly. EXTREMITIES: No cyanosis, no edema, and no clubbing. NEUROLOGIC: The patient is alert and oriented x3. No focal motor or sensory deficits noted. HEMATOLOGIC: No ecchymosis or petechiae. PSYCHIATRIC: No depression. DIAGNOSTIC STUDIES: WBC 7.7, hemoglobin 13.8, hematocrit 41.4, platelets are 191. Sodium 146, potassium 3.6, carbon dioxide 26, BUN 23, creatinine 1.07. AST 41, ALT 36. MEDICATIONS: 1. Decadron 6 mg IV daily. 2. Tylenol q.6 hours p.r.n. We will reconcile the patient's medications for blood pressure control and he has been started on doxazosin 8 mg b.i.d. ASSESSMENT: 1. COVID-19 hypoxia. The patient is currently on Decadron 6 mg IV daily, started on 01/24/2020. Chest x-ray shows evidence of hazy bilateral infiltrates consistent with COVID-19 pneumonia. We will use p.r.n. oxygen. 2. Benign essential hypertension, for which Cardura will be continued. 3. Benign prostatic hypertrophy. We will start the patient on Flomax 0.4 mg at bedtime. PLAN: Discussed in detail about the diagnosis, treatment, and followup with the patient. Advised the patient about continuation of the patient's home medications, Flomax and Decadron, at this point of time. The patient seems relaxed without oxygen, but because of his presentation and presence of bilateral infiltrates, we will closely monitor. Discharge plan if the patient is asymptomatic likely in the next 24 to 48 hours. Advanced directives, full code. Job ID: [id number]
[2020-01-24] MEDS ORDERED: FLU VACC QS2020-21(65YR UP)/PF 240 MCG/0.7 ML SYRINGE IM ONE (21:00)
[2020-01-25] MEDS: Guaifenesin DM 100-10/5 ML UDCUP PO PRN ×2 (01:56→08:43)
[2020-01-25] MEDS: Enoxaparin Sodium 40 MG/0.4 ML SYRINGE SC SCH (08:42)
[2020-01-25] MEDS: Doxazosin Mesylate 4 MG TAB PO SCH ×2 (08:42→20:36)
[2020-01-25] MEDS: Dexamethasone Sod Phosphate 6 MG in Sodium Chloride 0.9% 50 ML IVPB SCH (08:42)
--- NOTE | 2020-01-25 10:57 | PRG ---
DATE OF SERVICE: 01/25/2020 TIME OF SERVICE: 9:15 a.m. SUBJECTIVE: Patient seen and evaluated at bedside. Patient not in acute distress. Not short of breath. Has been advised to ambulate as tolerated at this point of time. OBJECTIVE: VITAL SIGNS: The patient is alert, oriented, not in acute distress. Has a temperature 97.8 degrees Fahrenheit, saturation of 93%, and blood pressure of 146/73 mm of Hg. Has an airway which is clear. HEENT: Atraumatic, normocephalic. NECK: Supple. No bruit. No lymphadenopathy. CVS: S1, S2. No abnormal rhythms or murmurs. CHEST: Bilateral air entry present. No rhonchi. No wheeze. ABDOMEN: Soft, nontender. Bowel sounds are present. EXTREMITIES: No cyanosis, no edema. LABORATORY DATA: We will do CBC CMP tomorrow in a.m. HOME MEDICATIONS: 1. Lovenox 40 mg daily for DVT prophylaxis. 2. Decadron 6 mg IV daily. 3. Tylenol q.6 hours p.r.n. pain. 4. Patient on doxazosin 8 mg b.i.d. ASSESSMENT: 1. COVID-19 hypoxia, resolving. Patient currently on IV Decadron 6 mg daily. The patient's symptomatology is resolving. Has been encouraged to ambulate. 2. Benign essential hypertension, well controlled. 3. History of benign prostatic hypertrophy. PLAN: Discussed in detail the diagnosis, treatment, and followup with the patient. Advised the patient about possible discharge planning in the next 24 hours. Advised about continuation of Decadron, early ambulation, DVT prophylaxis. CBC, CMP evaluation tomorrow in a.m. Job ID: [id number]
[2020-01-25 20:46] VITALS: TEMP 98
[2020-01-26] MEDS: Doxazosin Mesylate 4 MG TAB PO SCH (08:10)
[2020-01-26] MEDS: Enoxaparin Sodium 40 MG/0.4 ML SYRINGE SC SCH (08:10)
[2020-01-26] MEDS: Dexamethasone Sod Phosphate 6 MG in Sodium Chloride 0.9% 50 ML IVPB SCH (10:01)
[2020-01-26 11:44] VITALS: BP 158/78
[2020-01-26] MEDS ORDERED: Simvastatin 10 MG TAB PO SCH (21:00)
--- NOTE | 2020-01-27 03:10 | DIS ---
DATE OF ADMISSION: 01/23/2020 DATE OF DISCHARGE: 01/26/2020 DISCHARGING DIAGNOSES: 1. COVID-19 pneumonia, mild in nature, currently being discharged with oral Decadron for an 8-day course. All symptoms resolved. The patient is saturating 100% on room air. 2. Benign essential hypertension, on hydrochlorothiazide. 3. History of benign prostatic hypertrophy, on Flomax. DME needs at home, none. PHYSICAL EXAMINATION: CVS: S1, S2. CHEST: Bilateral air entry present. No rhonchi. No wheeze. ABDOMEN: Soft, nontender. Bowel sounds present. EXTREMITIES: No cyanosis. DISCHARGE MEDICATIONS: 1. Dexamethasone 6 mg daily for 8 days. 2. Allopurinol 300 mg daily. 3. Hydrochlorothiazide 25 mg daily. 4. Pravastatin 20 mg daily. 5. Flomax 0.4 mg at bedtime. HOSPITAL COURSE: This is a very pleasant 79-year-old gentleman, who was admitted to the hospitalist services for initial complaints of shortness of breath. There, he was diagnosed with COVID-19, mild pneumonia, subsequently admitted to the hospitalist services for management where he was started on IV Decadron, which he tolerated very well during his course of hospitalization. The patient over the course of his hospitalization did very well without any need for oxygen as he was comfortably able to ambulate. There was a discussion in regard to the patient's benign prostatic hypertrophy, for which recently he was prescribed Flomax, which according to the patient works very well and has been prescribed here. The patient was continued on his home dosing of hydrochlorothiazide for blood pressure control. At the same time, he was extensively educated in regard to 2 g sodium diet. The patient was completely asymptomatic. He was advised for 8-day course of Decadron and subsequent follow up with his primary care physician after isolation period of two weeks. The patient at this point of time has been advised for seven days of isolation at home and to wear mask all the time according to CDC guidelines. All questions and concerns were addressed. The patient was hemodynamically optimized on discharge. DISPOSITION: Discharged home. DISCHARGE PLAN: The patient has been advised and educated about the diagnosis, treatment, and followup. The patient has been advised about followup care with primary care physician in 2 to 3 weeks. The whole discharge process including discharge coordination took me more than 35 minutes. Medications have been e-scribed. Job ID: [id number]
[2020-01-27] MEDS ORDERED: Dexamethasone 4 MG TAB PO SCH (08:00)
[2020-01-27] MEDS ORDERED: Hydrochlorothiazide 25 MG TAB PO SCH (09:00)
[2020-01-27] MEDS ORDERED: Allopurinol 300 MG TAB PO SCH (09:00)
[2020-01-27] MEDS ORDERED: Tamsulosin HCl 0.4 MG CAP PO SCH (09:00)
== END 2020-01-26 13:05 | disposition home or self-care (01) | DRG 177 ==
LOC: INTOOBSV 14:00 → T4-A 14:00 → OBSVTOIN 14:00
PROVIDERS: ADMIT Internal Medicine; ATTEND Internal Medicine
PROC: 8E0ZXY6 Isolation (ICD-10-PCS; principal; 2020-01-23)
DX: U07.1 COVID-19 (principal); J12.89 Other viral pneumonia; I10 Essential (primary) hypertension; N40.0 Benign prostatic hyperplasia without lower urinary tract symptoms; E78.5 Hyperlipidemia, unspecified; R09.02 Hypoxemia; Z79.899 Other long term (current) drug therapy; Z87.891 Personal history of nicotine dependence
CPT/HCPCS: 36415; 71045; 80053; 83615; 84145; 85007; 85027; 85379; 86140; J1650

== ENCOUNTER 2020-02-14 13:53 | Outpatient (CLI) | payer MEDICARE ==
--- NOTE | 2020-02-14 14:12 | RAD ---
Chest 2 views HISTORY: Cough. COMPARISON: 01/24/2020. Findings cardiac silhouette unremarkable. Pulmonary vasculature upper limits of normal and accentuate d by shallow inspiration. Mediastinum is midline with aortic calcification. Ill-defined patchy bilateral coarsened infiltrates are more pronounced and more dense than on the allan or exam, including some consolidation at the left posterior lung base. No significant pleural fluid evident. No pneumothorax. IMPRESSION : Radiographic worsening of multifocal bilateral viral type infiltrate. Atherosclerosis.
== END 2020-02-14 13:54 | disposition home or self-care (01) ==
LOC: BICRAD 13:53
PROVIDERS: ATTEND Family Medicine
DX: R05 Cough (principal); I70.90 Unspecified atherosclerosis; R91.8 Other nonspecific abnormal finding of lung field
CPT/HCPCS: 36415; 71046; 80053; 85025

== ENCOUNTER 2021-10-08 14:31 | Outpatient (CLI) | payer MEDICARE | END 2021-10-08 14:32 | disposition home or self-care (01) | LOC: BICRAD 14:31 | PROVIDERS: ATTEND Family Medicine | DX: M25.561 Pain in right knee (principal); M25.562 Pain in left knee; R06.02 Shortness of breath; R60.9 Edema, unspecified; M17.12 Unilateral primary osteoarthritis, left knee; R91.8 Other nonspecific abnormal finding of lung field; E78.2 Mixed hyperlipidemia | CPT/HCPCS: 36415; 71046; 80053; 80061; 84443; 84550; 85025; 85652 ==

== ENCOUNTER 2022-01-01 14:33 | Outpatient (CLI) | payer MEDICARE | END 2022-01-01 14:34 | disposition home or self-care (01) | LOC: BICRAD 14:33 | PROVIDERS: ATTEND Family Medicine | DX: R05.1 Acute cough (principal); M61.48 Other calcification of muscle, other site | CPT/HCPCS: 71046 ==

== ENCOUNTER 2022-01-14 14:36 | Inpatient (IN) | payer MEDICARE ==
[~2022-01-14 14:36] MED LIST: Iopamidol-370 76% 500 ML 1 ML ONE
[2022-01-14 15:06] LABS: #Basophils 0.1 thou/uL (0.0-0.2); #Eosinphils 0.3 thou/uL (0.0-0.7); #Lymphocytes 2.1 thou/uL (1.20-3.40); #Monocytes 0.7 thou/uL (0.11-0.59); #Neutrophils 5.4 thou/uL (1.40-6.50); %Basophils 0.6 % (0.0-1.0); %Eosinophils 3.2 % (0.0-10.0); %Lymphocytes 24.2 % (21.0-51.0); %Monocytes 8.5 % (0.0-10.0); %Neutrophils 63.5 % (42.0-75.0); Hemoglobin 13.7 g/dL (14.0-18.0); Mean Corpuscular HGB CONC 33.4 g/dL (32.0-36.0); Mean Corpuscular Hemoglobin 31.6 pg (27.0-31.0); Mean Corpuscular Volume 94.6 fl (78.0-98.0); Mean Platelet Volume 7.4 fL (7.4-10.4); Platelet Count 229 10x3/uL (130-400); RBC Distribution Width 12.4 % (11.5-14.5); Red Blood Cell (RBC) Count 4.33 mill/uL (4.70-6.10); White Blood Cell (WBC) Count 8.5 10x3/uL (4.8-10.8)
[2022-01-14 15:27] LABS: ALT (SGPT) 86 U/L (8-55); AST (SGOT) 108 U/L (5-34); Albumin 3.4 g/dL (3.4-4.8); Alkaline Phosphatase 67 U/L (40-110); Anion Gap 11 mmol/L (10-20); BUN (Urea Nitrogen) 17 mg/dL (8.4-25.7); Bilirubin, Total 0.5 mg/dL (0.2-1.2); Calc. Creatinine Clearance 0 mL/min (70-130); Calcium 9.3 mg/dL (7.8-10.44); Carbon Dioxide 28 mmol/L (23-31); Chloride 105 mmol/L (98-107); Estimated GFR 45; Globulin 3.9 g/dL (2.4-3.5); Glucose 149 mg/dL (83-110); Potassium 3.4 mmol/L (3.5-5.1); Protein, Total 7.3 g/dL (5.8-8.1); Sodium 141 mmol/L (136-145)
[2022-01-14 15:46] LABS: Bilirubin Negative (Negative); Blood, Urine Negative (Negative); Clarity Clear (Clear); Glucose, Urine (Dipstick) Normal (Negative); Ketone, Urine Negative (Negative); Leukocyte Negative Leu/uL (Negative); Nitrite Negative (Negative); Protein, Urine (Dipstick) Negative (Neg-Trace); Specific Gravity, Urine 1.015 (1.002-1.036); Urobilinogen Normal mg/dL (Less than 2); pH, Urine 7.5 (5.0-9.0)
[2022-01-14 16:24] LABS: SARS-CoV-2 NAA Rapid Test Not Detected (NotDetected)
[2022-01-14] MEDS ORDERED: Ondansetron ODT 4 MG TAB PO PRN (18:22)
[2022-01-14] MEDS ORDERED: Ondansetron PF 4 MG/2 ML Vial IVP PRN (18:22)
[2022-01-14] MEDS ORDERED: Acetaminophen 325 MG TAB PO PRN (18:22)
[2022-01-14] MEDS ORDERED: Allopurinol 100 MG TAB PO SCH (18:32)
[2022-01-14] MEDS ORDERED: Benzonatate 100 MG CAP PO PRN (18:32)
[2022-01-14 19:07] LABS: Troponin I Less than 0.010 ng/mL (< 0.028)
[2022-01-14 20:33] VITALS: BMI 31.0
[2022-01-14] MEDS ORDERED: Diclofenac 1% 100 GM GEL TP PRN (21:01)
[2022-01-14] MEDS: Simvastatin 10 MG TAB PO SCH (21:33)
[2022-01-14] MEDS: Doxazosin Mesylate 4 MG TAB PO SCH (21:33)
[2022-01-14 21:58] LABS: Troponin I 0.013 ng/mL (< 0.028)
[2022-01-14] MEDS ORDERED: hydrALAZINE 25 MG TAB PO SCH (23:30)
[2022-01-15 04:51] LABS: #Eosinphils 0.7 thou/uL (0.0-0.7); #Lymphocytes 2.1 thou/uL (1.20-3.40); #Monocytes 0.7 thou/uL (0.11-0.59); %Basophils 0.6 % (0.0-1.0); %Eosinophils 8.2 % (0.0-10.0); %Lymphocytes 24.6 % (21.0-51.0); %Monocytes 8.4 % (0.0-10.0); %Neutrophils 58.2 % (42.0-75.0); Mean Corpuscular HGB CONC 32.4 g/dL (32.0-36.0); Mean Corpuscular Hemoglobin 31.2 pg (27.0-31.0); Mean Corpuscular Volume 96.4 fl (78.0-98.0); Mean Platelet Volume 7.5 fL (7.4-10.4); Platelet Count 232 10x3/uL (130-400); RBC Distribution Width 12.5 % (11.5-14.5); Red Blood Cell (RBC) Count 4.17 mill/uL (4.70-6.10); White Blood Cell (WBC) Count 8.6 10x3/uL (4.8-10.8)
[2022-01-15 05:52] LABS: ALT (SGPT) 75 U/L (8-55); AST (SGOT) 93 U/L (5-34); Albumin 3.2 g/dL (3.4-4.8); Alkaline Phosphatase 59 U/L (40-110); Anion Gap 14 mmol/L (10-20); BUN (Urea Nitrogen) 18 mg/dL (8.4-25.7); Bilirubin, Total 0.5 mg/dL (0.2-1.2); Calc. Creatinine Clearance 47 mL/min (70-130); Calcium 9.1 mg/dL (7.8-10.44); Carbon Dioxide 25 mmol/L (23-31); Chloride 107 mmol/L (98-107); Estimated GFR 43; Globulin 3.6 g/dL (2.4-3.5); Glucose 111 mg/dL (83-110); Potassium 3.6 mmol/L (3.5-5.1); Protein, Total 6.8 g/dL (5.8-8.1); Sodium 142 mmol/L (136-145)
[2022-01-15] MEDS: Doxazosin Mesylate 4 MG TAB PO SCH ×2 (09:04→20:05)
[2022-01-15] MEDS: Hydrochlorothiazide 25 MG TAB PO SCH (09:04)
[2022-01-15] MEDS: Allopurinol 100 MG TAB PO SCH (09:04)
[2022-01-15] MEDS: Simvastatin 10 MG TAB PO SCH (20:05)
[2022-01-15] MEDS ORDERED: Aspirin 81 mg Enteric Coated Tablet PO SCH (21:00)
[2022-01-15] MEDS ORDERED: Zinc Sulfate 220 MG CAP PO SCH (21:00)
[2022-01-16 05:10] LABS: #Basophils 0.1 thou/uL (0.0-0.2); #Eosinphils 0.7 thou/uL (0.0-0.7); #Lymphocytes 2.2 thou/uL (1.20-3.40); #Monocytes 0.6 thou/uL (0.11-0.59); %Basophils 0.7 % (0.0-1.0); %Eosinophils 8.6 % (0.0-10.0); %Lymphocytes 25.4 % (21.0-51.0); %Monocytes 6.9 % (0.0-10.0); %Neutrophils 58.5 % (42.0-75.0); Hemoglobin 12.9 g/dL (14.0-18.0); Mean Corpuscular Hemoglobin 30.8 pg (27.0-31.0); Mean Corpuscular Volume 96.3 fl (78.0-98.0); Mean Platelet Volume 7.6 fL (7.4-10.4); Platelet Count 233 10x3/uL (130-400); RBC Distribution Width 12.6 % (11.5-14.5); White Blood Cell (WBC) Count 8.6 10x3/uL (4.8-10.8)
[2022-01-16 05:29] LABS: Anion Gap 12 mmol/L (10-20); BUN (Urea Nitrogen) 21 mg/dL (8.4-25.7); Calc. Creatinine Clearance 56 mL/min (70-130); Calcium 9.1 mg/dL (7.8-10.44); Carbon Dioxide 27 mmol/L (23-31); Chloride 105 mmol/L (98-107); Estimated GFR 53; Glucose 105 mg/dL (83-110); Potassium 3.7 mmol/L (3.5-5.1); Sodium 140 mmol/L (136-145)
[2022-01-16 07:48] VITALS: TEMP 98.3
[2022-01-16 07:53] VITALS: BP 117/59
[2022-01-16] MEDS: Hydrochlorothiazide 25 MG TAB PO SCH (08:37)
[2022-01-16] MEDS: Allopurinol 100 MG TAB PO SCH (08:37)
[2022-01-16] MEDS: Doxazosin Mesylate 4 MG TAB PO SCH (08:37)
== END 2022-01-16 10:15 | disposition home or self-care (01) | DRG 312 ==
LOC: ERS 14:36 → 2SW 17:54 → OBSVTOIN 01-15 16:47
PROVIDERS: ADMIT Hospitalist; ATTEND Hospitalist
DX: I95.1 Orthostatic hypotension (principal); J98.11 Atelectasis; Z20.822 Contact with and (suspected) exposure to COVID-19; E78.5 Hyperlipidemia, unspecified; I12.9 Hypertensive chronic kidney disease with stage 1 through stage 4 chronic kidney disease, or unspecified chronic kidney disease; N18.31 Chronic kidney disease, stage 3a; M10.9 Gout, unspecified; Z86.73 Personal history of transient ischemic attack (TIA), and cerebral infarction without residual deficits; Z79.899 Other long term (current) drug therapy; Z86.16 Personal history of COVID-19; Z13.1 Encounter for screening for diabetes mellitus
CPT/HCPCS: 36415; 70450; 71045; 71275; 80048; 80053; 80061; 81003; 82043; 83036; 83605; 83735; 83880; 84443; 84484; 84550; 85025; 85379; 87040; 87086; 93005; 93306; 93880; G0378; Q9967

== ENCOUNTER 2022-02-12 14:29 | Outpatient (CLI) | payer MEDICARE | END 2022-02-12 14:30 | disposition home or self-care (01) | LOC: BICRAD 14:29 | PROVIDERS: ATTEND Family Medicine | DX: M54.2 Cervicalgia (principal); M47.812 Spondylosis without myelopathy or radiculopathy, cervical region; M47.814 Spondylosis without myelopathy or radiculopathy, thoracic region; M50.30 Other cervical disc degeneration, unspecified cervical region; M51.34 Other intervertebral disc degeneration, thoracic region | CPT/HCPCS: 72050; 72072 ==

== ENCOUNTER 2024-01-14 22:27 | Inpatient (IN) | payer MEDICARE ==
[~2024-01-14 22:27] MED LIST changes: -Iopamidol-370 76% 500 ML 1 ML ONE; +Iopamidol-370 76% 500 ML MDV (1 ML CHARGE) ONE
[2024-01-14 23:00] LABS: #Basophils 0.05 10x3/uL (0.0-0.2); %Basophils 0.6 % (0.0-1.0); %Eosinophils 3.7 % (0.0-10.0); %Lymphocytes 28.6 % (21.0-51.0); %Neutrophils 57.9 % (42.0-75.0); Hematocrit 40.1 % (42.0-52.0); Mean Corpuscular HGB CONC 32.4 g/dL (32.0-36.0); Mean Corpuscular Hemoglobin 30.4 pg (27.0-31.0); Mean Corpuscular Volume 93.7 fL (78.0-98.0); Mean Platelet Volume 9.4 fL (7.4-10.4); Platelet Count 208 10x3/uL (130-400); Red Blood Cell (RBC) Count 4.28 mill/uL (4.70-6.10)
[2024-01-14 23:13] LABS: INR-International Normal Ratio 1.1; PTT 29.6 sec (22.9-36.1); Prothrombin Time 14.2 sec (12.0-14.7)
[2024-01-14 23:18] LABS: ALT (SGPT) 18 U/L (8-55); AST (SGOT) 24 U/L (5-34); Albumin 2.8 g/dL (3.4-4.8); Alkaline Phosphatase 57 U/L (40-110); Anion Gap 12 mmol/L (10-20); BUN (Urea Nitrogen) 22 mg/dL (8.4-25.7); Bilirubin, Total 0.3 mg/dL (0.2-1.2); Calc. Creatinine Clearance 0 mL/min (70-130); Carbon Dioxide 25 mmol/L (23-31); Chloride 110 mmol/L (98-107); Estimated GFR 39; Globulin 3.9 g/dL (2.4-3.5); Glucose 141 mg/dL (83-110); Potassium 3.4 mmol/L (3.5-5.1); Protein, Total 6.7 g/dL (5.8-8.1); Sodium 144 mmol/L (136-145)
[2024-01-14 23:28] LABS: Troponin I 0.437 ng/mL (< 0.028)
[2024-01-14] MEDS ORDERED: Calcium Carbonate 500 MG ChewTAB PO PRN (23:32)
[2024-01-14] MEDS ORDERED: hydrALAZINE 20 MG/ML VIAL SLOW IVP PRN (23:32)
[2024-01-14] MEDS ORDERED: Senokot S 8.6-50 MG TAB PO PRN (23:32)
[2024-01-14] MEDS ORDERED: Acetaminophen 325 MG TAB PO PRN (23:32)
[2024-01-14] MEDS ORDERED: Ondansetron PF 4 MG/2 ML Vial IVP PRN (23:32)
[2024-01-14] MEDS ORDERED: Aspirin Chewable 81 MG TAB ONE (23:37)
[2024-01-15 01:38] VITALS: BMI 28.5
[2024-01-15 02:23] LABS: Troponin I 0.566 ng/mL (< 0.028)
[2024-01-15] MEDS: Lactated Ringer's 1,000 ML IV SCH (03:23)
[2024-01-15 03:51] LABS: #Basophils 0.06 10x3/uL (0.0-0.2); %Basophils 0.7 % (0.0-1.0); %Eosinophils 3.8 % (0.0-10.0); %Lymphocytes 28.7 % (21.0-51.0); %Monocytes 7.3 % (0.0-10.0); %Neutrophils 59.1 % (42.0-75.0); Hematocrit 41.3 % (42.0-52.0); Mean Corpuscular HGB CONC 31.5 g/dL (32.0-36.0); Mean Corpuscular Hemoglobin 30.2 pg (27.0-31.0); Mean Platelet Volume 9.4 fL (7.4-10.4); Platelet Count 193 10x3/uL (130-400); RBC Distribution Width 12.8 % (11.5-14.5)
[2024-01-15 04:09] LABS: Hemoglobin A1c 5.6 % (4.0-6.0)
[2024-01-15 04:15] LABS: ALT (SGPT) 17 U/L (8-55); AST (SGOT) 25 U/L (5-34); Albumin 2.8 g/dL (3.4-4.8); Alkaline Phosphatase 56 U/L (40-110); Anion Gap 15 mmol/L (10-20); BUN (Urea Nitrogen) 22 mg/dL (8.4-25.7); Bilirubin, Total 0.3 mg/dL (0.2-1.2); Calc. Creatinine Clearance 39 mL/min (70-130); Carbon Dioxide 21 mmol/L (23-31); Cardiac Risk 5.6 (Less than 4.5); Chloride 110 mmol/L (98-107); Cholesterol 179 mg/dl (< 200 Desired); Estimated GFR 40; Globulin 3.8 g/dL (2.4-3.5); Glucose 112 mg/dL (83-110); HDL Cholesterol 32 mg/dL (>60 Neg Risk); LDL Cholesterol, Calculated 123 mg/dL; Magnesium 2.1 mg/dL (1.6-2.6); Potassium 3.9 mmol/L (3.5-5.1); Protein, Total 6.6 g/dL (5.8-8.1); Sodium 142 mmol/L (136-145); Triglycerides 120 mg/dL (Less than 150)
[2024-01-15] MEDS: Doxazosin Mesylate 4 MG TAB PO SCH (10:15)
[2024-01-15] MEDS: Enoxaparin 40 MG (0.4 mL) SYRINGE SC SCH (10:15)
[2024-01-15] MEDS ORDERED: Diclofenac 1% 50 GM TOPICAL GEL TP PRN (14:40)
[2024-01-15] MEDS ORDERED: Benzonatate 100 MG CAP PO PRN (14:40)
[2024-01-15] MEDS: Aspirin 81 mg Enteric Coated Tablet PO SCH (20:44)
[2024-01-15] MEDS: Atorvastatin Calcium 40 MG TAB PO SCH (20:44)
[2024-01-15] MEDS: Allopurinol 100 MG TAB PO SCH (20:44)
[2024-01-16 03:45] LABS: Anion Gap 11 mmol/L (10-20); BUN (Urea Nitrogen) 20 mg/dL (8.4-25.7); Calc. Creatinine Clearance 48 mL/min (70-130); Calcium 9.1 mg/dL (7.8-10.44); Carbon Dioxide 27 mmol/L (23-31); Chloride 108 mmol/L (98-107); Estimated GFR 53; Glucose 116 mg/dL (83-110); Potassium 3.8 mmol/L (3.5-5.1); Sodium 142 mmol/L (136-145)
[2024-01-16] MEDS: Cholecalciferol 1,000 UNITS (25 MCG) TAB PO SCH (08:27)
[2024-01-16] MEDS: Losartan 25 MG TAB PO SCH (08:27)
[2024-01-16] MEDS: Ascorbic Acid 500 mg Chewable Tablet PO SCH (08:27)
[2024-01-16] MEDS: Amlodipine 10 MG TAB PO SCH (09:34)
[2024-01-17] MEDS: Amlodipine 10 MG TAB PO SCH (12:04)
[2024-01-18] MEDS ORDERED: Lidocaine 1% w/Epinephrine 1:100K 20 ML VIAL ONE (06:55)
[2024-01-18 12:56] VITALS: BP 162/84; TEMP 97.8
[2024-01-18] MEDS: FLU (Fluad Triv) TS24-25 (65UP)/MF59C/PF 45 MCG/0.5 ML Syringe IM ONE (14:29)
== END 2024-01-18 15:29 | disposition home or self-care (01) | DRG 41 ==
LOC: ERS 22:27 → SUATTDRO 22:27 → 2SE 23:31
PROVIDERS: ADMIT Internal Medicine; ATTEND Internal Medicine
PROC: 0JH602Z Insertion of Monitoring Device into Chest Subcutaneous Tissue and Fascia, Open Approach (ICD-10-PCS; principal; 2024-01-18)
PROC: 3E02340 Introduction of Influenza Vaccine into Muscle, Percutaneous Approach (ICD-10-PCS; 2024-01-18)
DX: G45.9 Transient cerebral ischemic attack, unspecified (principal); I5A Non-ischemic myocardial injury (non-traumatic); R47.01 Aphasia; I12.9 Hypertensive chronic kidney disease with stage 1 through stage 4 chronic kidney disease, or unspecified chronic kidney disease; E78.5 Hyperlipidemia, unspecified; N40.0 Benign prostatic hyperplasia without lower urinary tract symptoms; M10.9 Gout, unspecified; E87.6 Hypokalemia; H54.62 Unqualified visual loss, left eye, normal vision right eye; M19.90 Unspecified osteoarthritis, unspecified site; N18.30 Chronic kidney disease, stage 3 unspecified; Z79.899 Other long term (current) drug therapy; Z79.82 Long term (current) use of aspirin; Z23 Encounter for immunization
CPT/HCPCS: 33285; 36415; 36416; 70496; 70498; 70551; 71045; 80048; 80053; 80061; 83036; 83735; 83880; 84443; 84484; 85025; 85610; 85730; 90653; 93005; 93306; 94760; C1764; J1650; J7120; Q9967

== ENCOUNTER 2025-02-17 10:52 | Inpatient (IN) | payer MEDICARE ==
[2025-02-17 11:59] LABS: #Basophils 0.04 10x3/uL (0.0-0.2); #Eosinophils 0.22 10x3/uL (0.0-0.7); #Monocytes 0.70 10x3/uL (0.11-0.59); #Neutrophils 6.46 10x3/uL (1.40-6.50); %Basophils 0.4 % (0.0-1.0); %Eosinophils 2.5 % (0.0-10.0); %Lymphocytes 16.4 % (21.0-51.0); %Monocytes 7.8 % (0.0-10.0); %Neutrophils 72.2 % (42.0-75.0); Hematocrit 39.2 % (42.0-52.0); Hemoglobin 12.8 g/dL (14.0-18.0); Mean Corpuscular Hemoglobin 29.6 pg (27.0-31.0); Mean Corpuscular Volume 90.7 fL (78.0-98.0); Platelet Count 174 10x3/uL (130-400); Red Blood Cell (RBC) Count 4.32 mill/uL (4.70-6.10); White Blood Cell (WBC) Count 8.95 10x3/uL (4.8-10.8)
[2025-02-17 12:09] LABS: ALT (SGPT) 13 U/L (Less than 45); AST (SGOT) 25 U/L (11-34); Albumin 3.1 g/dL (3.1-4.5); Alkaline Phosphatase 61 U/L (40-110); Anion Gap 14 mmol/L (10-20); BUN (Urea Nitrogen) 26 mg/dL (8.4-25.7); Bilirubin, Total 0.5 mg/dL (0.3-1.2); Calc. Creatinine Clearance 0 mL/min (70-130); Calcium 9.4 mg/dL (7.8-10.44); Carbon Dioxide 25 mmol/L (23-31); Chloride 109 mmol/L (98-107); Globulin 3.6 g/dL (2.4-3.5); Glucose 119 mg/dL (83-110); Potassium 3.9 mmol/L (3.5-5.1); Sodium 144 mmol/L (136-145)
[2025-02-17 12:27] LABS: INR-International Normal Ratio 1.1; PTT 27.8 sec (22.9-36.1); Prothrombin Time 14.5 sec (12.0-14.7)
[2025-02-17 13:51] LABS: Bacteria/HPF None Seen HPF (None Seen); CAUTI Indications for Culture Alt mental st,lethar; Glucose, Urine (Dipstick) Normal (Negative); Leukocyte Negative Leu/uL (Negative); Protein, Urine (Dipstick) Negative (Neg-Trace); RBC/HPF 0-3 HPF (0-3); Specific Gravity, Urine 1.030 (1.002-1.036); WBC/HPF 0-3 HPF (0-3)
[2025-02-17 13:53] LABS: Urine Culture Reflex No No
[2025-02-17] MEDS ORDERED: Iopamidol-370 76% 500 ML MDV (1 ML CHARGE) ONE (14:20)
[2025-02-17] MEDS ORDERED: Aspirin Chewable 81 MG TAB ONE (15:03)
[2025-02-17] MEDS ORDERED: Senokot S 8.6-50 MG TAB PO PRN (16:44)
[2025-02-17] MEDS ORDERED: Melatonin 3 MG TAB PO PRN (16:44)
[2025-02-17] MEDS ORDERED: Ondansetron PF 4 MG/2 ML Vial IVP PRN (16:44)
[2025-02-17] MEDS ORDERED: Acetaminophen 325 MG TAB PO PRN (16:44)
[2025-02-17 19:33] VITALS: BMI 30.7
[2025-02-17] MEDS: Heparin 5,000 UNITS/ML VIAL SC SCH (21:35)
[2025-02-18 05:14] LABS: #Basophils 0.05 10x3/uL (0.0-0.2); #Eosinophils 0.73 10x3/uL (0.0-0.7); #Monocytes 0.76 10x3/uL (0.11-0.59); #Neutrophils 5.07 10x3/uL (1.40-6.50); %Basophils 0.6 % (0.0-1.0); %Eosinophils 8.2 % (0.0-10.0); %Lymphocytes 25.2 % (21.0-51.0); %Monocytes 8.6 % (0.0-10.0); %Neutrophils 57.2 % (42.0-75.0); Hematocrit 38.8 % (42.0-52.0); Hemoglobin 12.2 g/dL (14.0-18.0); Mean Corpuscular Hemoglobin 29.3 pg (27.0-31.0); Mean Corpuscular Volume 93.0 fL (78.0-98.0); Platelet Count 168 10x3/uL (130-400); Red Blood Cell (RBC) Count 4.17 mill/uL (4.70-6.10); White Blood Cell (WBC) Count 8.86 10x3/uL (4.8-10.8)
[2025-02-18 05:37] LABS: Anion Gap 13 mmol/L (10-20); BUN (Urea Nitrogen) 26 mg/dL (8.4-25.7); Calc. Creatinine Clearance 46 mL/min (70-130); Calcium 8.9 mg/dL (7.8-10.44); Carbon Dioxide 24 mmol/L (23-31); Chloride 113 mmol/L (98-107); Glucose 111 mg/dL (83-110); Potassium 4.2 mmol/L (3.5-5.1); Sodium 146 mmol/L (136-145)
[2025-02-18] MEDS: Losartan 25 MG TAB PO SCH (18:44)
[2025-02-18] MEDS ORDERED: DOXAZOSIN MESYLATE 8 MG PO SCH (21:00)
[2025-02-18] MEDS ORDERED: Aspirin 81 mg Enteric Coated Tablet PO SCH (21:00)
[2025-02-18] MEDS ORDERED: Non-Formulary Item 1 EACH (Doxazosin Mesylate [Cardura] 8 MG Tablet) PO SCH (21:00)
[2025-02-18] MEDS: cloNIDine 0.1 MG TAB PO PRN (23:23)
[2025-02-19 05:04] LABS: #Basophils 0.03 10x3/uL (0.0-0.2); #Eosinophils 0.59 10x3/uL (0.0-0.7); #Monocytes 0.60 10x3/uL (0.11-0.59); #Neutrophils 4.64 10x3/uL (1.40-6.50); %Basophils 0.4 % (0.0-1.0); %Eosinophils 7.4 % (0.0-10.0); %Lymphocytes 26.0 % (21.0-51.0); %Monocytes 7.5 % (0.0-10.0); %Neutrophils 58.4 % (42.0-75.0); Hematocrit 34.9 % (42.0-52.0); Hemoglobin 10.9 g/dL (14.0-18.0); Mean Corpuscular Hemoglobin 29.3 pg (27.0-31.0); Mean Corpuscular Volume 93.8 fL (78.0-98.0); Platelet Count 168 10x3/uL (130-400); Red Blood Cell (RBC) Count 3.72 mill/uL (4.70-6.10); White Blood Cell (WBC) Count 7.95 10x3/uL (4.8-10.8)
[2025-02-19 05:27] LABS: Anion Gap 11 mmol/L (10-20); BUN (Urea Nitrogen) 21 mg/dL (8.4-25.7); Calc. Creatinine Clearance 45 mL/min (70-130); Calcium 8.7 mg/dL (7.8-10.44); Carbon Dioxide 22 mmol/L (23-31); Chloride 116 mmol/L (98-107); Glucose 104 mg/dL (83-110); Potassium 4.1 mmol/L (3.5-5.1); Sodium 145 mmol/L (136-145)
[2025-02-19] MEDS: Mirtazapine 15 MG TAB PO SCH (08:56)
[2025-02-19] MEDS: Losartan 25 MG TAB PO SCH (08:56)
[2025-02-19 16:22] VITALS: BP 129/74; TEMP 98.1
== END 2025-02-19 17:42 | disposition home or self-care (01) | DRG 312 ==
LOC: ERS 10:52 → ERHOLD 15:08 → 2NO 19:27 → OBSVTOIN 02-18 15:20
PROVIDERS: ADMIT Hospitalist; ATTEND Internal Medicine
DX: R55 Syncope and collapse (principal); I69.954 Hemiplegia and hemiparesis following unspecified cerebrovascular disease affecting left non-dominant side; N17.9 Acute kidney failure, unspecified; E87.0 Hyperosmolality and hypernatremia; E78.5 Hyperlipidemia, unspecified; H54.62 Unqualified visual loss, left eye, normal vision right eye; N18.30 Chronic kidney disease, stage 3 unspecified; I12.9 Hypertensive chronic kidney disease with stage 1 through stage 4 chronic kidney disease, or unspecified chronic kidney disease; I77.819 Aortic ectasia, unspecified site; K74.60 Unspecified cirrhosis of liver; K80.20 Calculus of gallbladder without cholecystitis without obstruction
CPT/HCPCS: 36415; 70450; 70551; 71045; 71275; 74174; 80048; 80053; 81001; 83605; 83880; 84484; 85025; 85610; 85730; 87040; 87428; 93005; 93306; 96360; 96372; G0378; J1644; J7030; Q9967